=== PATIENT | female | born 1960 | race Caucasian/White ===

== ENCOUNTER 2023-09-15 15:39 | Outpatient (REF) | payer BC, SELFPAY ==
[2023-09-15 16:41] LABS: Anion Gap 15 (12-20); Blood Urea Nitrogen 12 mg/dL (9-16); Calcium 10.2 mg/dL (8.4-10.2); Carbon Dioxide 24 mmol/L (22-29); Chloride 107 mmol/L (96-108); Estimated Glomerular Filt Rate > 60; Glucose Random 102 mg/dL (60-115); Potassium 3.7 mmol/L (3.3-5.1); Sodium 142 mmol/L (135-145)
[2023-09-15 17:03] LABS: T4 Thyroxine 7.2 ug/dL (4.5-12.0); Thyroid Stimulating Hormone 1.34 uIU/mL (0.32-4.0)
[2023-09-15 17:12] LABS: Folate 6.4 ng/mL (> or = 4.0); Vitamin B12 411 pg/mL (200-900)
[2023-09-18 16:42] LABS: Vitamin D 25-OH, D2 <4 ng/mL; Vitamin D 25-OH, D3 40 ng/mL; Vitamin D 25-OH, Total 40 ng/mL (30-100)
== END 2023-09-15 15:40 | disposition home or self-care (01) ==
LOC: HO.LAB 15:39
PROVIDERS: Visit Provider Psychiatry & Neurology Neurology
DX: G31.84 Mild cognitive impairment of uncertain or unknown etiology (principal)
CPT/HCPCS: 36415; 80048; 82306; 82607; 82746; 84436; 84443

== ENCOUNTER 2023-10-22 12:44 | Outpatient (REF) | payer BC, SELFPAY ==
--- NOTE | 2023-10-22 12:48 | EEG_ITS ---
FINDINGS: Waking background activity consists of a moderate voltage posterior 9 hertz alpha frequency with intermixed anterior low-voltage fast frequencies. Several instances of bitemporal theta of 6 to 7 hertz are seen at moderate voltage. Photic stimulation is without activation. Hyperventilation was omitted. IMPRESSION: No definite diagnostic abnormalities are seen in this waking record. MD FALGUNI Goncalves/MATEUS / [id number]
== END 2023-10-22 12:45 | disposition home or self-care (01) ==
LOC: HO.NEURO 12:44
PROVIDERS: PCP Internal Medicine; Visit Provider Psychiatry & Neurology Neurology
DX: G31.84 Mild cognitive impairment of uncertain or unknown etiology (principal)
CPT/HCPCS: 95816

== ENCOUNTER 2024-05-27 09:30 | Day surgery (SDC) | payer BC, SELFPAY ==
--- OUTSIDE RECORDS SUMMARY | 2024-05-12 11:31 | XMS_ITS ---
Author Organization [facility] Address [address] [place] [address] Care Team Providers Care Pest Control Service Sales Agent Name Role Phone CONNER SHORT Primary Care Provider NELLIE MARIETTA Unavailable [phone] MEDICATIONS Medication SIG (Take, Route, Fr equency, Duration) Notes Start Date End Date Status Prolia 60 MG/ML as directed Subcutan eous every 6 months for 180 days Active Encounters Encounter Location Date Provider Diagnosis [facility] [address] [address] 05/10/2024 MARIETTA BALLARD Hyperlipidemia, unspecified E78.5 ASSESSMENTS Encounter Date Diagnosis Assessment Notes Treatment Notes Treatment Clinical Notes Section Notes 05/10/2024 Hyperlipidemia, unspecified (ICD-10 - E78.5) PLAN OF TREATMENT Medication Medication Name Sig Start Date Stop Date Notes Prolia 60 MG/ML as directed Subcutan eous every 6 months for 180 days Next Appt Details Provider Name:MARIETTA BALLARD, 11/08/2024 10:00:00 AM, [address] [address], [place], [address], Progress Notes * GRACE CARROLL LDOB:1959 (64 yo F)Acc No.[id number]:05/10/2024 Patient:??GRACE CARROLL :1960?Age:64 Y?Sex:Fe male Address:[address] [place] [address] * Refills?? Refill Prolia Solution Prefilled Syringe, 60 MG/ML, Subcutaneous, 1 Pen Needle, as directed, every 6 months, 180 days, Refills=1 * true * Date:??
--- OUTSIDE RECORDS SUMMARY | 2024-05-12 11:32 | XMS_ITS ---
Author Organization [facility] Address [address] [place] [address] Care Team Providers Care Waste Collector Name Role Phone CONNER SHORT Primary Care Provider [phone] MARIETTA BALLARD Unavailable [phone] ALLERGIES Allergen (clinical drug ingredient) Drug/Non Drug Allergy documented on EMR Reaction Allergy Type Onset Date Status eggs (uncoded) Unknown Allergy Activ e Vaccine product containing Influenza virus antigen (medicinal product) FLU VACCINE (uncoded) Unknown Allergy Active nuts (uncoded) Unknown Allergy Activ e soybean (uncoded) Unknown Allergy Ac tive meperidine Demerol Unknown Drug Allergy Active morphine Morphine Sulfate Unknown Drug Allergy Active acetaminophen / oxycodone Percocet Unknown Drug Allergy Active REASON FOR VISIT Pt seen in office for CPE, Prolia injection sent to [facility] to be delivered to the office MEDICATIONS Medication SIG (Take, Route, Frequency, Duration) Notes Start Date End Date Status Claritin 10 MG 1 tablet Orally Once a day for 30 day(s) Active Prolia 60 MG/ML as directed Subcutan eous every 6 months for 180 days Active Vitamin D3 125 MCG (5000 UT) as directed Orally Active Ambien 10 MG 1 tablet at bedtime as needed Orally Once a day Active busPIRone HCl 5 MG 2 tablets Orally Twi ce a day Active Emgality 120 MG/ML 120mg Subcutaneous m onthly for 30 days Active Nasacort Allergy 24HR 55 MCG/ACT 1 puff in each nostril Nasally Once a day for 30 day(s) Active ProAir HFA 108 (90 Base) MCG/ACT 2 puffs as needed Inhalation every 6 hrs Active ZyrTEC Allergy 10 MG 1 tablet Orally Onc e a day for 30 day(s) Active Atorvastatin Calcium 40 MG TAKE ONE TABL ET BY MOUTH EVERY DAY for 90 Active EpiPen 2-Javid 0.3 MG/0.3ML Injection Active LORazepam 0.5 MG 1 tablet as needed O rally every 6 hrs Active Montelukast Sodium 10 MG 1 tablet in the evening Orally Once a day for 30 day(s) Active SOCIAL HISTORY Tobacco Use: Social History Observation Description Date Details (start date - stop date) Never Smoker NA - NA Sex Assigned At : Social History Observation Description Sex Assigned At Unknown Tobacco Use/Smoking Question Answer Notes Are you a nonsmoker VITAL SIGNS Heart Rate 94 /min 05/10/2024 Blood pressure systolic 114 mm Hg 05/10/19 25 Blood pressure diastolic 74 mm Hg 025 Weight 150 lbs 05/10/2024 BMI 26.57 kg/m2 05/10/2024 Height 63 in 05/10/2024 Oximetry 99 % 05/10/2024 Encounters Encounter Location Date Provider Diagnosis [place] [address] [address] 05/10/2024 MARIETTA BALLARD Hyperlipidemia, unspecified E78.5 ; Nonspecific chest pain R07.9 ; Generalized anxiety disorder F41.1 ; Memory change R41.3 ; Sleep disturbance G47.9 ; 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 ; Prediabetes R73.03 ; Osteoporosis without current pathological fracture, unspecified osteoporosis type M81.0 ; Pain in left shoulder M25.512 and Esophageal stricture K22.2 ASSESSMENTS Encounter Date Diagnosis Assessment Notes Treatment Notes Treatment Clinical Notes Section Notes 05/10/2024 Hyperlipidemia, unspecified (ICD-10 - E78.5) Acute Concerns/Problem List: 05/10/2024 Seeing neurology planning on getting LP done and a neuropsych evaluation Please update mammography please follow-up with [facility] in regards to stress testing Please start your Prolia as soon as possible given the osteoporotic state Of note, some information is being carried forward from prior records for informational purposes only and is being cited so that efficiency, safety and quality of the patient's care is not compromised This note was prepared using voice recognition software and direct typing Please excuse inadvertent workers compensation adjuster or typing errors, or uncorrected word substitutions Although every attempt has been made by the provider to proofread this document, occasional misspellings and typographical errors may still be present Due to the previous pandemic, and the use of personal protective equipment (PPE) This may decrease voice recognition accuracy Inadvertent workers compensation adjuster errors may occur0 05/10/2024 Nonspecific chest pain (ICD-10 - R07.9) Acute Concerns/Problem List: 05/10/2024 Seeing neurology planning on getting LP done and a neuropsych evaluation Please update mammography please follow-up with [facility] in regards to stress testing Please start your Prolia as soon as possible given the osteoporotic state Of note, some information is being carried forward from prior records for informational purposes only and is being cited so that efficiency, safety and quality of the patient's care is not compromised This note was prepared using voice recognition software and direct typing Please excuse inadvertent workers compensation adjuster or typing errors, or uncorrected word substitutions Although every attempt has been made by the provider to proofread this document, occasional misspellings and typographical errors may still be present Due to the previous pandemic, and the use of personal protective equipment (PPE) This may decrease voice recognition accuracy Inadvertent workers compensation adjuster errors may occur0 05/10/2024 Generalized anxiety disorder (ICD-10 - F41.1) Acute Concerns/Problem List: 05/10/2024 Seeing neurology planning on getting LP done and a neuropsych evaluation Please update mammography please follow-up with [facility] in regards to stress testing Please start your Prolia as soon as possible given the osteoporotic state Of note, some information is being carried forward from prior records for informational purposes only and is being cited so that efficiency, safety and quality of the patient's care is not compromised This note was prepared using voice recognition software and direct typing Please excuse inadvertent workers compensation adjuster or typing errors, or uncorrected word substitutions Although every attempt has been made by the provider to proofread this document, occasional misspellings and typographical errors may still be present Due to the previous pandemic, and the use of personal protective equipment (PPE) This may decrease voice recognition accuracy Inadvertent workers compensation adjuster errors may occur0 05/10/2024 Memory change (ICD-10 - R41.3) Acute Concerns/Problem List: 05/10/2024 Seeing neurology planning on getting LP done and a neuropsych evaluation Please update mammography please follow-up with [facility] in regards to stress testing Please start your Prolia as soon as possible given the osteoporotic state Of note, some information is being carried forward from prior records for informational purposes only and is being cited so that efficiency, safety and quality of the patient's care is not compromised This note was prepared using voice recognition software and direct typing Please excuse inadvertent workers compensation adjuster or typing errors, or uncorrected word substitutions Although every attempt has been made by the provider to proofread this document, occasional misspellings and typographical errors may still be present Due to the previous pandemic, and the use of personal protective equipment (PPE) This may decrease voice recognition accuracy Inadvertent workers compensation adjuster errors may occur0 05/10/2024 Sleep disturbance (ICD-10 - G47.9) Acute Concerns/Problem List: 05/10/2024 Seeing neurology planning on getting LP done and a neuropsych evaluation Please update mammography please follow-up with [facility] in regards to stress testing Please start your Prolia as soon as possible given the osteoporotic state Of note, some information is being carried forward from prior records for informational purposes only and is being cited so that efficiency, safety and quality of the patient's care is not compromised This note was prepared using voice recognition software and direct typing Please excuse inadvertent workers compensation adjuster or typing errors, or uncorrected word substitutions Although every attempt has been made by the provider to proofread this document, occasional misspellings and typographical errors may still be present Due to the previous pandemic, and the use of personal protective equipment (PPE) This may decrease voice recognition accuracy Inadvertent workers compensation adjuster errors may occur0 05/10/2024 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) Acute Concerns/Problem List: 05/10/2024 Seeing neurology planning on getting LP done and a neuropsych evaluation Please update mammography please follow-up with [facility] in regards to stress testing Please start your Prolia as soon as possible given the osteoporotic state Of note, some information is being carried forward from prior records for informational purposes only and is being cited so that efficiency, safety and quality of the patient's care is not compromised This note was prepared using voice recognition software and direct typing Please excuse inadvertent workers compensation adjuster or typing errors, or uncorrected word substitutions Although every attempt has been made by the provider to proofread this document, occasional misspellings and typographical errors may still be present Due to the previous pandemic, and the use of personal protective equipment (PPE) This may decrease voice recognition accuracy Inadvertent workers compensation adjuster errors may occur0 05/10/2024 Prediabetes (ICD-10 - R73.03) Acute Concerns/Problem List: 05/10/2024 Seeing neurology planning on getting LP done and a neuropsych evaluation Please update mammography please follow-up with [facility] in regards to stress testing Please start your Prolia as soon as possible given the osteoporotic state Of note, some information is being carried forward from prior records for informational purposes only and is being cited so that efficiency, safety and quality of the patient's care is not compromised This note was prepared using voice recognition software and direct typing Please excuse inadvertent workers compensation adjuster or typing errors, or uncorrected word substitutions Although every attempt has been made by the provider to proofread this document, occasional misspellings and typographical errors may still be present Due to the previous pandemic, and the use of personal protective equipment (PPE) This may decrease voice recognition accuracy Inadvertent workers compensation adjuster errors may occur0 05/10/2024 Osteoporosis without current pathological fracture, unspecified osteoporosis type (ICD-10 - M81.0) Acute Concerns/Problem List: 05/10/2024 Seeing neurology planning on getting LP done and a neuropsych evaluation Please update mammography please follow-up with [facility] in regards to stress testing Please start your Prolia as soon as possible given the osteoporotic state Of note, some information is being carried forward from prior records for informational purposes only and is being cited so that efficiency, safety and quality of the patient's care is not compromised This note was prepared using voice recognition software and direct typing Please excuse inadvertent workers compensation adjuster or typing errors, or uncorrected word substitutions Although every attempt has been made by the provider to proofread this document, occasional misspellings and typographical errors may still be present Due to the previous pandemic, and the use of personal protective equipment (PPE) This may decrease voice recognition accuracy Inadvertent workers compensation adjuster errors may occur0 05/10/2024 Pain in left shoulder (ICD-10 - M25.512) Acute Concerns/Problem List: 05/10/2024 Seeing neurology planning on getting LP done and a neuropsych evaluation Please update mammography please follow-up with [facility] in regards to stress testing Please start your Prolia as soon as possible given the osteoporotic state Of note, some information is being carried forward from prior records for informational purposes only and is being cited so that efficiency, safety and quality of the patient's care is not compromised This note was prepared using voice recognition software and direct typing Please excuse inadvertent workers compensation adjuster or typing errors, or uncorrected word substitutions Although every attempt has been made by the provider to proofread this document, occasional misspellings and typographical errors may still be present Due to the previous pandemic, and the use of personal protective equipment (PPE) This may decrease voice recognition accuracy Inadvertent workers compensation adjuster errors may occur0 05/10/2024 Esophageal stricture (ICD-10 - K22.2) Acute Concerns/Problem List: 05/10/2024 Seeing neurology planning on getting LP done and a neuropsych evaluation Please update mammography please follow-up with [facility] in regards to stress testing Please start your Prolia as soon as possible given the osteoporotic state Of note, some information is being carried forward from prior records for informational purposes only and is being cited so that efficiency, safety and quality of the patient's care is not compromised This note was prepared using voice recognition software and direct typing Please excuse inadvertent workers compensation adjuster or typing errors, or uncorrected word substitutions Although every attempt has been made by the provider to proofread this document, occasional misspellings and typographical errors may still be present Due to the previous pandemic, and the use of personal protective equipment (PPE) This may decrease voice recognition accuracy Inadvertent workers compensation adjuster errors may occur0 PLAN OF TREATMENT Medication Medication Name Sig Start Date Stop Date Notes Prolia 60 MG/ML as directed Subcutan eous every 6 months for 180 days Emgality 120 MG/ML 120mg Subcutaneous monthly for 30 days Next Appt Details Provider Name:MARIETTA BALLARD, 11/08/2024 10:00:00 AM, [address] [facility], [facility] [address], [place], [address], Progress Notes * GRACE CARROLL LDOB:1959 (64 yo F)Acc No.[id number]:05/10/2024 CPE Patient:??GRACE CARROLL Provider:??MARIETTA BALLARD NP :1960?Age:64 Y?Sex:Fe male Date:05/10/2024 Address:[address], [facility] Pcp:CONNER SHORT Subjective: * Chief Complaints: * ?1. Pt seen in office f or CPE, Prolia injection sent to [facility] to be delivered to the office. * HPI: ?Constitutional:? Patient is here for Annual CPE ?Patient seen and examined. ? Full past medical history, social history, family history, ?allergies and current medications were reviewed and updated. ?Acute Concerns/Problem List: ?05/10/2024 ?She is under tremendous amount of stress and incr workload at work ?She has been neglecting herself ?She has yet to schedule cardiac stress testing, we did refer her in late January ?She was seen for an ER follow-up visit, see previous notes ?Cardiac workup was unremarkable and she was ruled out ?However she has risk factors and her heart score indicates she should have outpatient testing ?Migraine headaches have improved ?Also chronic ongoing memory concerns and family history of dementia ?Patient does see Dr. Galarza. - Pt saw, blood work, EEG, MRI completed. ?Scheduled for LP in the upcoming weeks ?still waiting to see neuropsych for memory/dementia work up. ?She did undergo MRI of the brain without in April 2022 ?There was no evidence of acute infarct or findings ?There are some volume loss and chronic small vessel ischemic changes ?She is osteoporotic and she cannot take alendronate because of swallowing of pills ?We discussed using Prolia however this was sent and she still has not gotten it from pharmacy ?The patient has a history of esophageal strictures and dilation. ?She underwent EGD and colonoscopy with [facility] ?She is requesting a new GI provider -still looking for new GI provider. . ?Other History that includes allergic rhinitis, chronic obstructive asthma, food allergies, drug allergies ?Urticaria and mast cell activation disorder ?Being treated by allergy and immunology ?History of nephrolithiasis ?She is followed by urology. ?Comprehensive labs November 2023 ?UA unremarkable ?Hemoglobin A1c of 5.3 ?Renal function electrolytes and LFTs are stable ?CBC is stable ?Total cholesterol 178, triglycerides 116, HDL 46, LDL 109 ?Vitamin D 38 ?TSH 1.77 ?Health maintenance ?Colonoscopy screening April 2020 ?Polyps. [facility] ?5 year surveillance - aware she is due in 2024. ?Mammography/Pap: 03/2022. OVERDUEr ?DXA: 04/2022: Osteoporotic. Due for updated Dexa ?Flu: allergic ?COVID MRNA x 2 ?Shingrix: Desires Shingrix vaccine today. * ROS:?All Other Systems:?Review of Systems (ROS)??All others negative except those mentioned in HPI.? * Medical History:??Asthma, Al lergic rhinitis, Hypercholesterolemia, Hyperlipidemia. * Surgical History:??cholecyst ectomy , ovarian cyst resection , polypectomy , colonoscopy due 2019 . * Hospitalization/Major Diagno stic Procedure:??Denies Past Hospitalization. * Family History:??Father: dec eased, diagnosed with Other malignant neoplasm of unspecified site.??Mother: alive, diagnosed with Other malignant neoplasm of unspecified site.??2 brother(s) - healthy. 1 son(s) , 1 daughter(s) - healthy. .?? father larynx cx. * Social History:?Tobacco Use:??Tobacco Use/Smoking??Are you a??nonsmoker.?? * Medications:??Taking Prolia 60 MG/ML Solution Prefilled Syringe as directed Subcutaneous every 6 months , Taking Vitamin D3 125 MCG (5000 UT) Tablet Chewable as directed Orally , Taking Ambien 10 MG Tablet 1 tablet at bedtime as needed Orally Once a day , Taking busPIRone HCl 5 MG Tablet 2 tablets Orally Twice a day , Taking Claritin 10 MG Tablet 1 tablet Orally Once a day , Taking EpiPen 2-Javid 0.3 MG/0.3ML Solution Auto-injector Injection , Taking LORazepam 0.5 MG Tablet 1 tablet as needed Orally every 6 hrs , Taking Montelukast Sodium 10 MG Tablet 1 tablet in the evening Orally Once a day , Taking Nasacort Allergy 24HR 55 MCG/ACT Aerosol 1 puff in each nostril Nasally Once a day , Taking ProAir HFA 108 (90 Base) MCG/ACT Aerosol Solution 2 puffs as needed Inhalation every 6 hrs , Taking ZyrTEC Allergy 10 MG Tablet 1 tablet Orally Once a day , Taking Atorvastatin Calcium 40 MG Tablet TAKE ONE TABLET BY MOUTH EVERY DAY , Not-Taking Emgality 120 MG/ML Solution Auto-injector 120mg Subcutaneous monthly , Medication List reviewed and reconciled with the patient * Allergies:??Morphine Sulfate , Demerol, Percocet, eggs, soybean, nuts, FLU VACCINE. Objective: * Vitals:??HR:94/min, BP:114/7 4mm Hg, Wt:150lbs, BMI:26.57Index, Ht: 63 in, Oxygen sat %:99%. * Examination: ?General Examination: ?GENERAL APPEARANCE:??in no acute distress, well developed, well nourished.??HEAD:??normocephalic, atraumatic.??EYES:??pupils equal, round, reactive to light and accommodation.??EARS:??normal.??ORAL CAVITY:??mucosa moist.??THROAT:??clear.??NECK/THYROID:??neck supple, full range of motion, no cervical lymphadenopathy.??SKIN:??no suspicious lesions, warm and dry.??HEART:??no murmurs, regular rate and rhythm, S1, S2 normal.??LUNGS:??clear to auscultation bilaterally.??ABDOMEN:??normal, bowel sounds present, soft, nontender, nondistended.??EXTREMITIES:??no clubbing, cyanosis, or edema.??NEUROLOGIC:??nonfocal, motor strength normal upper and lower extremities, sensory exam intact.? Assessment: * Assessment: 1.??Nonspecific chest pain - R07.9 (Primary)??2.??Hyperlipidemia, unspecified - E78.5??3.??Generalized anxiety disorder - F41.1??4.??Memory change - R41.3??5.??Sleep disturbance - G47.9??6.??Mast cell activation syndrome - D89.40??7.??Prediabetes - R73.03??8.??Osteoporosis without current pathological fracture, unspecified osteoporosis type - M81.0??9.??Pain in left shoulder - M25.512??10.??Esophageal stricture - K22.2?? Acute Concerns/Problem List: 05/10/2024 Seeing neurology planning on getting LP done and a neuropsych evaluation Please update mammography please follow-up with [facility] in regards to stress testing Please start your Prolia as soon as possible given the osteoporotic state Of note, some information is being carried forward from prior records for informational purposes only and is being cited so that efficiency, safety and quality of the patient's care is not compromised This note was prepared using voice recognition software and direct typing Please excuse inadvertent workers compensation adjuster or typing errors, or uncorrected word substitutions Although every attempt has been made by the provider to proofread this document, occasional misspellings and typographical errors may still be present Due to the previous pandemic, and the use of personal protective equipment (PPE) This may decrease voice recognition accuracy Inadvertent workers compensation adjuster errors may occur0. Plan: * Treatment: * Images: Billing Information: * Visit Code:?? 49952 Preventive Care Est Pt. Age 65 and over. * Procedure Codes:?? Care Plan Details* * Sign off status: Completed true * Provider:??MARIETTA BALLARD NP Date:??11/2024 History and Physical Notes * HPI (History of Present Illness) Category Sub-Category Detail Notes Category Not es Constitutional Patient is here for Annual CPE Patient seen and examined. Full past medical history, social history, family history, allergies and current medications were reviewed and updated. Acute Concerns/Problem List: 05/10/2024 She is under tremendous amount of stress and incr workload at work She has been neglecting herself She has yet to schedule cardiac stress testing, we did refer her in late January She was seen for an ER follow-up visit, see previous notes Cardiac workup was unremarkable and she was ruled out However she has risk factors and her heart score indicates she should have outpatient testing Migraine headaches have improved Also chronic ongoing memory concerns and family history of dementia Patient does see Dr. Galarza. - Pt saw, blood work, EEG, MRI completed. Scheduled for LP in the upcoming weeks still waiting to see neuropsych for memory/dementia work up. She did undergo MRI of the brain without in April 2022 There was no evidence of acute infarct or findings There are some volume loss and chronic small vessel ischemic changes She is osteoporotic and she cannot take alendronate because of swallowing of pills We discussed using Prolia however this was sent and she still has not gotten it from pharmacy The patient has a history of esophageal strictures and dilation. She underwent EGD and colonoscopy with [facility] She is requesting a new GI provider -still looking for new GI provider. . Other History that includes allergic rhinitis, chronic obstructive asthma, food allergies, drug allergies Urticaria and mast cell activation disorder Being treated by allergy and immunology History of nephrolithiasis She is followed by urology. Comprehensive labs November 2023 UA unremarkable Hemoglobin A1c of 5.3 Renal function electrolytes and LFTs are stable CBC is stable Total cholesterol 178, triglycerides 116, HDL 46, LDL 109 Vitamin D 38 TSH 1.77 Health maintenance Colonoscopy screening April 2020 Polyps. [facility] 5 year surveillance - aware she is due in 2024. Mammography/Pap: 03/2022. OVERDUEr DXA: 04/2022: Osteoporotic. Due for updated Dexa Flu: allergic COVID MRNA x 2 Shingrix: Desires Shingrix vaccine today. Examination Category Sub-Category Detail Notes Category Not es General Examination GENERAL APPEARANCE: in no ac lolita distress, well developed, well nourished HEAD: normocephalic, atrau matic EYES: pupils equal, round, reactive to light and accommodation EARS: normal THROAT: clear NECK/THYROID: neck supple, full ra nge of motion, no cervical lymphadenopathy HEART: no murmurs, regular rate and rhythm, S1, S2 normal LUNGS: clear to auscultatio n bilaterally ABDOMEN: normal, bowel sounds present, soft, nontender, nondistended NEUROLOGIC: nonfocal, motor stre ngth normal upper and lower extremities, sensory exam intact SKIN: no suspicious lesion s, warm and dry EXTREMITIES: no clubbing, cyanosi s, or edema ORAL CAVITY: mucosa moist
--- OUTSIDE RECORDS SUMMARY | 2024-05-12 11:32 | XMS_ITS ---
Author Organization [facility] Address [address] [place] [address] Care Team Providers Care Salt Manager Name Role Phone [facility] Primary Care Provider [phone] REASON FOR VISIT insurance referral Encounters Encounter Location Date Provider Diagnosis [address] [place] [address] 04/07/2024 [facility] PLAN OF TREATMENT Next Appt Details Provider Name:MARIETTA TATUMTracey, 11/08/2024 10:00:00 AM, [address], [address], [place], [address], Progress Notes * GRACE CARROLL LDOB:1959 (64 yo F)Acc No.[id number]:04/07/2024 Patient:??GRACE CARROLL :1960?Age:64 Y?Sex:Fe male Address:[address], [place] [address] * true * Date:??
--- OUTSIDE RECORDS SUMMARY | 2024-05-12 11:32 | XMS_ITS | Patient Health Record ---
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 Name Role Phone CONNER SHORT Primary Care Provider MARIETTA BALLARD Unavailable [phone] ALLERGIES Allergen (clinical drug ingredient) Drug/Non Drug [...] / oxycodone Percocet Unknown Drug Allergy Active RESULTS Component Value Reference Range Notes URINALYSIS Reviewed date:11/12/2023 12:04:37 PM Interpretation: Performing Lab: Notes/Report: Note Original Ordering Provider: MARIETTA BALLARD NP kidthing, a member of [address] [address] Cloth Bleaching Range Tender - Yuly Brice MD GLUCOSE, (UA) NEGATIVE NEGATIVE mg/dL BILIRUBIN, URINE NEGATIVE NEGATIVE KETONE, URINE NEGATIVE NEGATIVE mg/dL SPECIFIC GRAVITY, URINE 1.022 1.003-1.030 BLOOD, URINE SMALL NEGATIVE PH, URINE 5.5 5.0-8.0 PROTEIN, URINE NEGATIVE <= TRACE mg/dl UROBILINOGEN, URINE 0.2 0.2-1.0 E.U./dL NITRITE, URINE NEGATIVE NEGATIVE LEUKOCYTE ESTERASE, URINE SMALL NEGATIVE Note Original Ordering Provider: MARIETTA BALLARD NP kidthing, a member of [address] [address] Cl[employer] Bleaching Range Tender - Yuly Brice MD GLYCOHEMOGLOBIN PROFILE Reviewed date:11/12/2023 12:45:15 PM Interpretation: Performing Lab: Notes/Report: GLYCATED HEMOGLOBIN A1C 5.3 <6.5 % ESTIMATED AVERAGE GLUCOSE 105 COMPREHENSIVE METABOLIC PANE L Reviewed date:11/12/2023 01:25:03 PM Interpretation: Performing Lab: Notes/Report: Note Original Orderi ng Provider: MARIETTA BALLARD PARKING OFFICER GLUCOSE 103 70-100 mg/dL Reference range applicable to fasting specimens only BUN 14 5-25 mg/dL CREAT 0.80 0.5-1.1 mg/dL GLOMERULAR FILTRATION RATE 82 >60 This eGFR result was calculated using the CKD-EPI 2020 Creatinine Equation SODIUM 144 135-145 mEq/L POTASSIUM 4.2 3.5-5.5 mmol/L CHLORIDE 110 96-110 mmol/L CO2 27 21-32 mmol/L ANION GAP 7 3-11 CALCIUM 10.4 8.5-10.5 mg/dL TOTAL PROTEIN 7.2 6.0-8.0 G/dL ALBUMIN 4.2 3.2-5.0 G/dL BILI,TOTAL 1.0 0.0-1.4 mg/dL SGOT 17 10-42 U/L SGPT 27 10-60 U/L ALK PHOS 79 42-121 U/L CBC WITH AUTO DIFF Reviewed date:11/12/2023 11:51:06 AM Interpretation: Performing Lab: Notes/Report: WBC 5.4 4.8-10.8 x10-3/uL RBC 4.6 3.8-4.8 x10-6/uL HEMOGLOBIN 14.1 11.5-16.0 g/dL HEMATOCRIT 42.5 35-47 % MCV 92.2 79-98 fL MCH 30.6 27-32 pg MCHC 33.2 32-37 g/dL RDW 12.4 11-15 % PLT COUNT 246 130-400 x10-3/uL MEAN PLATELET VOLUME 10.8 7-11 fL NRBC % AUTO 0.0 <1 % NEUT % 67.5 LYMPH % 23.7 MONO % 7.3 EOS % 0.7 BASO % 0.6 IMMATURE GRANULOCYTES % 0.2 NRBC # AUTO 0.00 <0.1 x10-3/uL ABSOLUTE NEUT 3.61 1.5-7.0 x10-3/uL LYMPH # 1.27 1-5.0 x10-3/uL MONO # 0.39 0.2-1.0 x10-3/uL EOS # 0.04 0-0.5 x10-3/uL BASO # 0.03 0-0.2 x10-3/uL IMMATURE GRANULOCYTES # 0.01 0-0.03 x10-3/uL LIPID PROFILE Reviewed date:11/12/2023 01:25:03 PM Interpretation: Performing Lab: Notes/Report: CHOLESTEROL 178 0-200 mg/dL TRIGLYCERIDES 116 0-150 mg/dL VITAMIN D, 25-HYDROXY Reviewed date:11/12/2023 01:25:03 PM Interpretation: Performing Lab: Notes/Report: VITAMIN D, 25-HYDROXY 38 30-80 ng/mL TSH Reviewed date:11/12/2023 01:25:03 PM Interpretation: Performing Lab: Notes/Report: TSH 1.77 0.40-4.00 uIU/ml REASON FOR REFERRAL Reason consult Diagnosis 1 Esophageal stricture (K22.2) Referral Organization [facility] 119 Referring Provider First Name MARIETTA Referring Provider Last Name NELLIE Referring Provider Speciality Internal M edicine Referred Provider Karen AWAN Referred Provider Specialty Gastroentero logy General Notes BO HENDRICKSON 11/11 11:19:09 AM > faxed to Dr Rader for appt - gave pt phone # to call for appt Referral Priority Routine Reason [facility]VC stress test Diagnosis 1 Other chest pain (R0 7.89) Referral Organization [facility] Referring Provider First Name CONNER Referring Provider Last Name HAN Referring Provider Speciality Internal edicine Referred Provider Specialty Cardiology General Notes Pt needing to be ref erred to [facility] for stress test , faxed over last ekg that was done in 2019 they stated in order for her to get stress test done she will need updated EKG. Clinical Notes Sadaf Hernandez 01/07 01:44:02 PM > Referral Priority Routine MEDICATIONS Medication SIG (Take, Route, Frequency, Duration) Notes Start Date End Date Status Nasacort Allergy 24HR 55 MCG/ACT 1 puff in each nostril Nasally Once a day for 30 day(s) Active ProAir HFA 108 (90 Base) MCG/ACT 2 puffs as needed Inhalation every 6 hrs Active ZyrTEC Allergy 10 MG 1 tablet Orally Onc e a day for 30 day(s) Active Atorvastatin Calcium 40 MG TAKE ONE TABL ET BY MOUTH EVERY DAY for 90 Active Vitamin D3 125 MCG (5000 UT) as directed Orally Active Ambien 10 MG 1 tablet at bedtime as needed Orally Once a day Active busPIRone HCl 5 MG 2 tablets Orally Twi ce a day Active Claritin 10 MG 1 tablet Orally Once a day for 30 day(s) Active EpiPen 2-Javid 0.3 MG/0.3ML Injection Active LORazepam 0.5 MG 1 tablet as needed O rally every 6 hrs Active Montelukast Sodium 10 MG 1 tablet in the evening Orally Once a day for 30 day(s) Active Prolia 60 MG/ML as directed Subcutan eous every 6 months for 180 days Active Emgality 120 MG/ML 120mg Subcutaneous m onthly for 30 days Active IMMUNIZATIONS Vaccine Route Administration Date Status Comme nts Moderna Covid-19 Vaccine Unknown 07/11/2020 Administere d Moderna Covid-19 Vaccine Unknown 08/13/2020 Administere d Moderna Covid-19 Vaccine Unknown 04/16/2021 Administere d SOCIAL HISTORY Tobacco Use: Social History Observation Description Date Details (start date - stop date) Never Smoker NA - NA Sex Assigned At : Social History Observation Description Sex Assigned At Unknown Tobacco Use/Smoking Question Answer Notes Are you a nonsmoker PROBLEMS Problem Type ICD Code Onset Dates Problem Status W/U Status Risk SNOMED Code Notes Problem Vitamin D deficiency, unspecified (E55.9) Active confirmed 94614512 Problem Hyperlipidemia, unspecified (E78.5) Active confirmed Hyperlipidemia (64868562) Problem Generalized anxiety disorder (F41.1) Active confirmed Generalized anxiety disorder (02050615) Problem Other migraine, not intractable, without status migrainosus (G43.809) Active confirmed Migraine withou t aura, not refractory (915004585) Problem Other chronic pain (G89.29) Active confirmed 54792926 Problem Allergic rhinitis, unspecified (J30.9) Active confirmed Allergic rhinit is (88194949) Problem Age-related osteoporosis without current pathological fracture (M81.0) Active confirmed Age-related osteoporosis (459250348) Problem Calculus of kidney (N20.0) Active confirmed Calculus of kidney (23100062) Problem Other chest pain (R07.89) Active confirmed 06495990 Problem Encounter for general adult medical examination without abnormal findings (Z00.00) Active confirmed 083566425 Problem Encounter for screening for lipoid disorders (Z13.220) Active confirmed 008778909 Problem Encounter for screening for other suspected endocrine disorder (Z13.29) Active confirmed 432115644 Problem Encounter for screening for osteoporosis (Z13.820) Active confirmed 133914710 Problem Right knee pain, unspecified chronicity (M25.561) Active confirmed Problem Depression, unspecified depression type (F32.9) Active confirmed 08665421 Problem Insomnia, unspecified type (G47.00) Active confirmed 590275246 Problem Esophageal stricture (K22.2) Active confirmed 26447921 Problem Osteoporosis without current pathological fracture, unspecified osteoporosis type (M81.0) Active confirmed 91745444 Problem Memory change (R41.3) Active confirmed Amnesia (35666355) Problem Sleep disturbance (G47.9) Active confirmed Sleep disturban ce (70345644) Problem 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) Active confirmed Mast cell activation syndrome ([id number] 0) VITAL SIGNS Heart Rate 94 /min 05/10/2024 Oximetry 99 % 05/10/2024 Blood pressure diastolic 74 mm Hg 05/10/2024 Height 63 in 05/10/2024 Blood pressure systolic 114 mm Hg 05/10/2024 Weight 150 lbs 05/10/2024 BMI 26.57 kg/m2 05/10/2024 Encounters Encounter Location Date Provider Diagnosis [place] [address] 07/23/2023 MARIETTA BORHOT Hyperlipidemia, unspecified E78.5 ; Generalized anxiety disorder F41.1 ; Memory change R41.3 ; Sleep disturbance G47.9 ; 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 ; Vitamin D deficiency, unspecified E55.9 ; Prediabetes R73.03 ; Osteoporosis without current pathological fracture, unspecified osteoporosis type M81.0 ; Pain in left shoulder M25.512 and Other chronic pain G89.29 [place] [address] 11/12/2023 MARIETTA BORHOT Hyperlipidemia, unspecified E78.5 ; Generalized anxiety disorder F41.1 ; Memory change R41.3 ; Sleep disturbance G47.9 ; 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 ; Prediabetes R73.03 ; Osteoporosis without current pathological fracture, unspecified osteoporosis type M81.0 ; Pain in left shoulder M25.512 ; Nonspecific chest pain R07.9 and Esophageal stricture K22.[address] [place] [address] 05/10/2024 MARIETTACONG WINNT Hyperlipidemia, unspecified E78.5 ; Nonspecific chest pain R07.9 ; Generalized anxiety disorder F41.1 ; Memory change R41.3 ; Sleep disturbance G47.9 ; 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 ; Prediabetes R73.03 ; Osteoporosis without current pathological fracture, unspecified osteoporosis type M81.0 ; Pain in left shoulder M25.512 and Esophageal stricture K22.[address] [place] [address] 07/03/2023 [facility] [address] [place] [address] 10/07/2023 [facility] [address] [place] [address] 11/12/[address] [facility] [address] [place] [address] 01/08/[address] [facility] [place] [phone] 01/08/2024 [facility] [address] [place] [address] 04/07/[address] [facility] [address] [place] [phone] 05/10/2024 MARIETTA BALLARD Hyperlipidemia, unspecified E78.5 ASSESSMENTS Encounter Date Diagnosis Assessment Notes Treatment Notes Treatment Clinical Notes Section Notes 11/12/2023 Hyperlipidemia, unspecified (ICD-10 - E78.5) Acute Concerns/Problem List: 11/12/2023 _update labs please updated DXA send prolia to [facility] f/u with neurology Rerefer to [facility] Cardiac stress testing We discussed the role of cholesterol and atherosclerosis. Cholesterols broken down into some particles. Cholesterol very important for her body and has an important role in the synthesis of various hormones and neurotransmitters. However, today's cholesterol can have potential complications. Small density LDL particles that are oxidized or particularly dangerous. HDL cholesterol can have a protective effect. Elevated triglycerides levels are also dangerous. An elevated triglyceride and HDL ratio could be a sign of insulin resistance. Statins, fibrates, niacin, fish oil, DHEA, can be beneficial in treatment of dyslipidemia. Lifestyle modification with exercise and appropriate nutrition can decrease the risk of atherosclerosis due to dyslipidemia. Of note, some information is being carried forward from prior records for informational purposes only and is being cited so that efficiency, safety and quality of the patient's care is not compromised This note was prepared using voice recognition software and direct typing Please excuse inadvertent equity structurer or typing errors, or uncorrected word substitutions Although every attempt has been made by the provider to proofread this document, occasional misspellings and typographical errors may still be present Due to the previous pandemic, and the use of personal protective equipment (PPE) This may decrease voice recognition accuracy Inadvertent equity structurer errors may occur0 05/10/2024 Hyperlipidemia, unspecified (ICD-10 - E78.5) Acute Concerns/Problem List: 05/10/2024 Seeing neurology planning on getting LP done and a neuropsych evaluation Please update mammography please follow-up with [facility] in regards to stress testing Please [...] software and direct typing Please excuse inadvertent equity structurer or typing errors, or uncorrected word substitutions Although every attempt has been made by the provider to proofread this document, occasional misspellings and typographical errors may still be present Due to the previous pandemic, and the use of personal protective equipment (PPE) This may decrease voice recognition accuracy Inadvertent equity structurer errors may occur0 05/10/2024 Nonspecific chest pain (ICD-10 - R07.9) Acute Concerns/Problem List: 05/10/2024 Seeing neurology planning on getting LP done and a neuropsych evaluation Please update mammography please follow-up with [facility] in regards to stress testing Please [...] software and direct typing Please excuse inadvertent equity structurer or typing errors, or uncorrected word substitutions Although every attempt has been made by the provider to proofread this document, occasional misspellings and typographical errors may still be present Due to the previous pandemic, and the use of personal protective equipment (PPE) This may decrease voice recognition accuracy Inadvertent equity structurer errors may occur0 05/10/2024 Hyperlipidemia, unspecified (ICD-10 - E78.5) 07/23/2023 Hyperlipidemia, unspecified (ICD-10 - E78.5) Patient seen and examined for CCM. Acute Concerns/Problem List: 07/23/2023 Will rerefer to neurology per request [facility] encouraged to speak to insurance company and to neurologist regarding treatment options She seems to respond to CGRP's Cardiac stress testing Lets update labs and CPE in the upcoming months We discussed the role of cholesterol and atherosclerosis. Cholesterols broken down into some particles. Cholesterol very important for her body and has an important role in the synthesis of various hormones and neurotransmitters. However, today's cholesterol can have potential complications. Small density LDL particles that are oxidized or particularly dangerous. HDL cholesterol can have a protective effect. Elevated triglycerides levels are also dangerous. An elevated triglyceride and HDL ratio could be a sign of insulin resistance. Statins, fibrates, niacin, fish oil, DHEA, can be beneficial in treatment of dyslipidemia. Lifestyle modification with exercise and appropriate nutrition can decrease the risk of atherosclerosis due to dyslipidemia. Of note, some information is being carried forward from prior records for informational purposes only and is being cited so that efficiency, safety and quality of the patient's care is not compromised This note was prepared using voice recognition software and direct typing Please excuse inadvertent equity structurer or typing errors, or uncorrected word substitutions Although every attempt has been made by the provider to proofread this document, occasional misspellings and typographical errors may still be present Due to the previous pandemic, and the use of personal protective equipment (PPE) This may decrease voice recognition accuracy Inadvertent equity structurer errors may occur0 07/23/2023 Generalized anxiety disorder (ICD-10 - F41.1) Patient seen and examined for CCM. Acute Concerns/Problem List: 07/23/2023 Will rerefer to neurology per request Rerefer to [facility] Emgality samples provided encouraged to speak to insurance company and to neurologist regarding treatment options She seems to respond to CGRP's Cardiac stress testing Lets update labs and CPE in the upcoming months We discussed the role of cholesterol and atherosclerosis. Cholesterols broken down into some particles. Cholesterol very important for her body and has an important role in the synthesis of various hormones and neurotransmitters. However, today's cholesterol can have potential complications. Small density LDL particles that are oxidized or particularly dangerous. HDL cholesterol can have a protective effect. Elevated triglycerides levels are also dangerous. An elevated triglyceride and HDL ratio could be a sign of insulin resistance. Statins, fibrates, niacin, fish oil, DHEA, can be beneficial in treatment of dyslipidemia. Lifestyle modification with exercise and appropriate nutrition can decrease the risk of atherosclerosis due to dyslipidemia. Of note, some information is being carried forward from prior records for informational purposes only and is being cited so that efficiency, safety and quality of the patient's care is not compromised This note was prepared using voice recognition software and direct typing Please excuse inadvertent equity structurer or typing errors, or uncorrected word substitutions Although every attempt has been made by the provider to proofread this document, occasional misspellings and typographical errors may still be present Due to the previous pandemic, and the use of personal protective equipment (PPE) This may decrease voice recognition accuracy Inadvertent equity structurer errors may occur0 05/10/2024 Generalized anxiety disorder (ICD-10 - F41.1) Acute Concerns/Problem List: 05/10/2024 Seeing neurology planning on getting LP done and a neuropsych evaluation Please update mammography please follow-up with [facility] in regards to stress testing Please [...] software and direct typing Please excuse inadvertent equity structurer or typing errors, or uncorrected word substitutions Although every attempt has been made by the provider to proofread this document, occasional misspellings and typographical errors may still be present Due to the previous pandemic, and the use of personal protective equipment (PPE) This may decrease voice recognition accuracy Inadvertent equity structurer errors may occur0 11/12/2023 Generalized anxiety disorder (ICD-10 - F41.1) Acute Concerns/Problem List: 11/12/2023 _update labs please updated DXA send prolrubi to [facility]/ with neurology Rerefer to [facility] Cardiac stress testing We discussed the role of cholesterol and atherosclerosis. Cholesterols broken down into some particles. Cholesterol very important for her body and has an important role in the synthesis of various hormones and neurotransmitters. However, today's cholesterol can have potential complications. Small density LDL particles that are oxidized or particularly dangerous. HDL cholesterol can have a protective effect. Elevated triglycerides levels are also dangerous. An elevated triglyceride and HDL ratio could be a sign of insulin resistance. Statins, fibrates, niacin, fish oil, DHEA, can be beneficial in treatment of dyslipidemia. Lifestyle modification with exercise and appropriate nutrition can decrease the risk of atherosclerosis due to dyslipidemia. Of note, some information is being carried forward from prior records for informational purposes only and is being cited so that efficiency, safety and quality of the patient's care is not compromised This note was prepared using voice recognition software and direct typing Please excuse inadvertent equity structurer or typing errors, or uncorrected word substitutions Although every attempt has been made by the provider to proofread this document, occasional misspellings and typographical errors may still be present Due to the previous pandemic, and the use of personal protective equipment (PPE) This may decrease voice recognition accuracy Inadvertent equity structurer errors may occur0 11/12/2023 Memory change (ICD-10 - R41.3) Acute Concerns/Problem List: 11/12/2023 _update labs please updated DXA send antonia to [facility]/ with neurology Rerefer to [facility] Cardiac stress testing We discussed the role of cholesterol and atherosclerosis. Cholesterols broken down into some particles. Cholesterol very important for her body and has an important role in the synthesis of various hormones and neurotransmitters. However, today's cholesterol can have potential complications. Small density LDL particles that are oxidized or particularly dangerous. HDL cholesterol can have a protective effect. Elevated triglycerides levels are also dangerous. An elevated triglyceride and HDL ratio could be a sign of insulin resistance. Statins, fibrates, niacin, fish oil, DHEA, can be beneficial in treatment of dyslipidemia. Lifestyle modification with exercise and appropriate nutrition can decrease the risk of atherosclerosis due to dyslipidemia. Of note, some information is being carried forward from prior records for informational purposes only and is being cited so that efficiency, safety and quality of the patient's care is not compromised This note was prepared using voice recognition software and direct typing Please excuse inadvertent equity structurer or typing errors, or uncorrected word substitutions Although every attempt has been made by the provider to proofread this document, occasional misspellings and typographical errors may still be present Due to the previous pandemic, and the use of personal protective equipment (PPE) This may decrease voice recognition accuracy Inadvertent equity structurer errors may occur0 05/10/2024 Memory change (ICD-10 - R41.3) Acute Concerns/Problem List: 05/10/2024 Seeing neurology planning on getting LP done and a neuropsych evaluation Please update mammography please follow-up with [facility] in regards to stress testing Please [...] software and direct typing Please excuse inadvertent equity structurer or typing errors, or uncorrected word substitutions Although every attempt has been made by the provider to proofread this document, occasional misspellings and typographical errors may still be present Due to the previous pandemic, and the use of personal protective equipment (PPE) This may decrease voice recognition accuracy Inadvertent equity structurer errors may occur0 07/23/2023 Memory change (ICD-10 - R41.3) Patient seen and examined for CCM. Acute Concerns/Problem List: 07/23/2023 Will rerefer to neurology per request [facility] provided encouraged to speak to insurance company and to neurologist regarding treatment options She seems to respond to CGRP's Cardiac stress testing Lets update labs and CPE in the upcoming months We discussed the role of cholesterol and atherosclerosis. Cholesterols broken down into some particles. Cholesterol very important for her body and has an important role in the synthesis of various hormones and neurotransmitters. However, today's cholesterol can have potential complications. Small density LDL particles that are oxidized or particularly dangerous. HDL cholesterol can have a protective effect. Elevated triglycerides levels are also dangerous. An elevated triglyceride and HDL ratio could be a sign of insulin resistance. Statins, fibrates, niacin, fish oil, DHEA, can be beneficial in treatment of dyslipidemia. Lifestyle modification with exercise and appropriate nutrition can decrease the risk of atherosclerosis due to dyslipidemia. Of note, some information is being carried forward from prior records for informational purposes only and is being cited so that efficiency, safety and quality of the patient's care is not compromised This note was prepared using voice recognition software and direct typing Please excuse inadvertent equity structurer or typing errors, or uncorrected word substitutions Although every attempt has been made by the provider to proofread this document, occasional misspellings and typographical errors may still be present Due to the previous pandemic, and the use of personal protective equipment (PPE) This may decrease voice recognition accuracy Inadvertent equity structurer errors may occur0 07/23/2023 Sleep disturbance (ICD-10 - G47.9) Patient seen and examined for CCM. Acute Concerns/Problem List: 07/23/2023 Will rerefer to neurology per request Rerefer to [facility] Emgality samples provided encouraged to speak to insurance company and to neurologist regarding treatment options She seems to respond to CGRP's Cardiac stress testing Lets update labs and CPE in the upcoming months We discussed the role of cholesterol and atherosclerosis. Cholesterols broken down into some particles. Cholesterol very important for her body and has an important role in the synthesis of various hormones and neurotransmitters. However, today's cholesterol can have potential complications. Small density LDL particles that are oxidized or particularly dangerous. HDL cholesterol can have a protective effect. Elevated triglycerides levels are also dangerous. An elevated triglyceride and HDL ratio could be a sign of insulin resistance. Statins, fibrates, niacin, fish oil, DHEA, can be beneficial in treatment of dyslipidemia. Lifestyle modification with exercise and appropriate nutrition can decrease the risk of atherosclerosis due to dyslipidemia. Of note, some information is being carried forward from prior records for informational purposes only and is being cited so that efficiency, safety and quality of the patient's care is not compromised This note was prepared using voice recognition software and direct typing Please excuse inadvertent equity structurer or typing errors, or uncorrected word substitutions Although every attempt has been made by the provider to proofread this document, occasional misspellings and typographical errors may still be present Due to the previous pandemic, and the use of personal protective equipment (PPE) This may decrease voice recognition accuracy Inadvertent equity structurer errors may occur0 11/12/2023 Sleep disturbance (ICD-10 - G47.9) Acute Concerns/Problem List: 11/12/2023 _update labs please updated DXA send prolia to [facility] f/u with neurology Rerefer to [facility] Cardiac stress testing We discussed the role of cholesterol and atherosclerosis. Cholesterols broken down into some particles. Cholesterol very important for her body and has an important role in the synthesis of various hormones and neurotransmitters. However, today's cholesterol can have potential complications. Small density LDL particles that are oxidized or particularly dangerous. HDL cholesterol can have a protective effect. Elevated triglycerides levels are also dangerous. An elevated triglyceride and HDL ratio could be a sign of insulin resistance. Statins, fibrates, niacin, fish oil, DHEA, can be beneficial in treatment of dyslipidemia. Lifestyle modification with exercise and appropriate nutrition can decrease the risk of atherosclerosis due to dyslipidemia. Of note, some information is being carried forward from prior records for informational purposes only and is being cited so that efficiency, safety and quality of the patient's care is not compromised This note was prepared using voice recognition software and direct typing Please excuse inadvertent equity structurer or typing errors, or uncorrected word substitutions Although every attempt has been made by the provider to proofread this document, occasional misspellings and typographical errors may still be present Due to the previous pandemic, and the use of personal protective equipment (PPE) This may decrease voice recognition accuracy Inadvertent equity structurer errors may occur0 05/10/2024 Sleep disturbance (ICD-10 - G47.9) Acute Concerns/Problem List: 05/10/2024 Seeing neurology planning on getting LP done and a neuropsych evaluation Please update mammography please follow-up with [facility] in regards to stress testing Please [...] software and direct typing Please excuse inadvertent equity structurer or typing errors, or uncorrected word substitutions Although every attempt has been made by the provider to proofread this document, occasional misspellings and typographical errors may still be present Due to the previous pandemic, and the use of personal protective equipment (PPE) This may decrease voice recognition accuracy Inadvertent equity structurer errors may occur0 05/10/2024 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) Acute Concerns/Problem List: 05/10/2024 Seeing neurology planning on getting LP done and a neuropsych evaluation Please update mammography please follow-up with [facility] in regards to stress testing Please [...] software and direct typing Please excuse inadvertent equity structurer or typing errors, or uncorrected word substitutions Although every attempt has been made by the provider to proofread this document, occasional misspellings and typographical errors may still be present Due to the previous pandemic, and the use of personal protective equipment (PPE) This may decrease voice recognition accuracy Inadvertent equity structurer errors may occur0 11/12/2023 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 Cholesterols broken down into some particles. Cholesterol very important for her body and has an important role in the synthesis of various hormones and neurotransmitters. However, today's cholesterol can have potential complications. Small density LDL particles that are oxidized or particularly dangerous. HDL cholesterol can have a protective effect. Elevated triglycerides levels are also dangerous. An elevated triglyceride and HDL ratio could be a sign of insulin resistance. Statins, fibrates, niacin, fish oil, DHEA, can be beneficial in treatment of dyslipidemia. Lifestyle modification with exercise and appropriate nutrition can decrease the risk of atherosclerosis due to dyslipidemia. Of note, some information is being carried forward from prior records for informational purposes only and is being cited so that efficiency, safety and quality of the patient's care is not compromised This note was prepared using voice recognition software and direct typing Please excuse inadvertent equity structurer or typing errors, or uncorrected word substitutions Although every attempt has been made by the provider to proofread this document, occasional misspellings and typographical errors may still be present Due to the previous pandemic, and the use of personal protective equipment (PPE) This may decrease voice recognition accuracy Inadvertent equity structurer errors may occur0 07/23/2023 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 Acute Concerns/Problem List: 07/23/2023 Will rerefer to neurology per request Rerefer to [facility] Emgality samples provided encouraged to speak to insurance company and to neurologist regarding treatment options She seems to respond to CGRP's Cardiac stress testing Lets update labs and CPE in the upcoming months We discussed the role of cholesterol and atherosclerosis. Cholesterols broken down into some particles. Cholesterol very important for her body and has an important role in the synthesis of various hormones and neurotransmitters. However, today's cholesterol can have potential complications. Small density LDL particles that are oxidized or particularly dangerous. HDL cholesterol can have a protective effect. Elevated triglycerides levels are also dangerous. An elevated triglyceride and HDL ratio could be a sign of insulin resistance. Statins, fibrates, niacin, fish oil, DHEA, can be beneficial in treatment of dyslipidemia. Lifestyle modification with exercise and appropriate nutrition can decrease the risk of atherosclerosis due to dyslipidemia. Of note, some information is being carried forward from prior records for informational purposes only and is being cited so that efficiency, safety and quality of the patient's care is not compromised This note was prepared using voice recognition software and direct typing Please excuse inadvertent equity structurer or typing errors, or uncorrected word substitutions Although every attempt has been made by the provider to proofread this document, occasional misspellings and typographical errors may still be present Due to the previous pandemic, and the use of personal protective equipment (PPE) This may decrease voice recognition accuracy Inadvertent equity structurer errors may occur0 05/10/2024 Prediabetes (ICD-10 - R73.03) Acute Concerns/Problem List: 05/10/2024 Seeing neurology planning on getting LP done and a neuropsych evaluation Please update mammography please follow-up with [facility] in regards to stress testing Please [...] software and direct typing Please excuse inadvertent equity structurer or typing errors, or uncorrected word substitutions Although every attempt has been made by the provider to proofread this document, occasional misspellings and typographical errors may still be present Due to the previous pandemic, and the use of personal protective equipment (PPE) This may decrease voice recognition accuracy Inadvertent equity structurer errors may occur0 07/23/2023 Vitamin D deficiency, unspecified (ICD-10 - E55.9) Patient seen and examined for CCM. Acute Concerns/Problem List: 07/23/2023 Will rerefer to neurology per request Rerefer to [facility] Emgality samples provided encouraged to speak to insurance company and to neurologist regarding treatment options She seems to respond to CGRP's Cardiac stress testing Lets update labs and CPE in the upcoming months We discussed the role of cholesterol and atherosclerosis. Cholesterols broken down into some particles. Cholesterol very important for her body and has an important role in the synthesis of various hormones and neurotransmitters. However, today's cholesterol can have potential complications. Small density LDL particles that are oxidized or particularly dangerous. HDL cholesterol can have a protective effect. Elevated triglycerides levels are also dangerous. An elevated triglyceride and HDL ratio could be a sign of insulin resistance. Statins, fibrates, niacin, fish oil, DHEA, can be beneficial in treatment of dyslipidemia. Lifestyle modification with exercise and appropriate nutrition can decrease the risk of atherosclerosis due to dyslipidemia. Of note, some information is being carried forward from prior records for informational purposes only and is being cited so that efficiency, safety and quality of the patient's care is not compromised This note was prepared using voice recognition software and direct typing Please excuse inadvertent equity structurer or typing errors, or uncorrected word substitutions Although every attempt has been made by the provider to proofread this document, occasional misspellings and typographical errors may still be present Due to the previous pandemic, and the use of personal protective equipment (PPE) This may decrease voice recognition accuracy Inadvertent equity structurer errors may occur0 11/12/2023 Prediabetes (ICD-10 - R73.03) Acute Concerns/Problem List: 11/12/2023 _update labs please updated DXA send [facility] f/u with neurology Rerefer to [facility] Cardiac stress testing We discussed the role of cholesterol and atherosclerosis. Cholesterols broken down into some particles. Cholesterol very important for her body and has an important role in the synthesis of various hormones and neurotransmitters. However, today's cholesterol can have potential complications. Small density LDL particles that are oxidized or particularly dangerous. HDL cholesterol can have a protective effect. Elevated triglycerides levels are also dangerous. An elevated triglyceride and HDL ratio could be a sign of insulin resistance. Statins, fibrates, niacin, fish oil, DHEA, can be beneficial in treatment of dyslipidemia. Lifestyle modification with exercise and appropriate nutrition can decrease the risk of atherosclerosis due to dyslipidemia. Of note, some information is being carried forward from prior records for informational purposes only and is being cited so that efficiency, safety and quality of the patient's care is not compromised This note was prepared using voice recognition software and direct typing Please excuse inadvertent equity structurer or typing errors, or uncorrected word substitutions Although every attempt has been made by the provider to proofread this document, occasional misspellings and typographical errors may still be present Due to the previous pandemic, and the use of personal protective equipment (PPE) This may decrease voice recognition accuracy Inadvertent equity structurer errors may occur0 11/12/2023 Osteoporosis without current pathological fracture, unspecified osteoporosis type (ICD-10 - M81.0) Acute Concerns/Problem List: 11/12/2023 _update labs please updated DXA send prolia to [facility] f/u with neurology Rerefer to [facility] Cardiac stress testing We discussed the role of cholesterol and atherosclerosis. Cholesterols broken down into some particles. Cholesterol very important for her body and has an important role in the synthesis of various hormones and neurotransmitters. However, today's cholesterol can have potential complications. Small density LDL particles that are oxidized or particularly dangerous. HDL cholesterol can have a protective effect. Elevated triglycerides levels are also dangerous. An elevated triglyceride and HDL ratio could be a sign of insulin resistance. Statins, fibrates, niacin, fish oil, DHEA, can be beneficial in treatment of dyslipidemia. Lifestyle modification with exercise and appropriate nutrition can decrease the risk of atherosclerosis due to dyslipidemia. Of note, some information is being carried forward from prior records for informational purposes only and is being cited so that efficiency, safety and quality of the patient's care is not compromised This note was prepared using voice recognition software and direct typing Please excuse inadvertent equity structurer or typing errors, or uncorrected word substitutions Although every attempt has been made by the provider to proofread this document, occasional misspellings and typographical errors may still be present Due to the previous pandemic, and the use of personal protective equipment (PPE) This may decrease voice recognition accuracy Inadvertent equity structurer errors may occur0 05/10/2024 Osteoporosis without current pathological fracture, unspecified osteoporosis type (ICD-10 - M81.0) Acute Concerns/Problem List: 05/10/2024 Seeing neurology planning on getting LP done and a neuropsych evaluation Please update mammography please follow-up with [facility] in regards to stress testing Please [...] software and direct typing Please excuse inadvertent equity structurer or typing errors, or uncorrected word substitutions Although every attempt has been made by the provider to proofread this document, occasional misspellings and typographical errors may still be present Due to the previous pandemic, and the use of personal protective equipment (PPE) This may decrease voice recognition accuracy Inadvertent equity structurer errors may occur0 07/23/2023 Prediabetes (ICD-10 - R73.03) Patient seen and examined for CCM. Acute Concerns/Problem List: 07/23/2023 Will rerefer to neurology per request Rerefer to [facility] samples provided encouraged to speak to insurance company and to neurologist regarding treatment options She seems to respond to CGRP's Cardiac stress testing Lets update labs and CPE in the upcoming months We discussed the role of cholesterol and atherosclerosis. Cholesterols broken down into some particles. Cholesterol very important for her body and has an important role in the synthesis of various hormones and neurotransmitters. However, today's cholesterol can have potential complications. Small density LDL particles that are oxidized or particularly dangerous. HDL cholesterol can have a protective effect. Elevated triglycerides levels are also dangerous. An elevated triglyceride and HDL ratio could be a sign of insulin resistance. Statins, fibrates, niacin, fish oil, DHEA, can be beneficial in treatment of dyslipidemia. Lifestyle modification with exercise and appropriate nutrition can decrease the risk of atherosclerosis due to dyslipidemia. Of note, some information is being carried forward from prior records for informational purposes only and is being cited so that efficiency, safety and quality of the patient's care is not compromised This note was prepared using voice recognition software and direct typing Please excuse inadvertent equity structurer or typing errors, or uncorrected word substitutions Although every attempt has been made by the provider to proofread this document, occasional misspellings and typographical errors may still be present Due to the previous pandemic, and the use of personal protective equipment (PPE) This may decrease voice recognition accuracy Inadvertent equity structurer errors may occur0 07/23/2023 Osteoporosis without current pathological fracture, unspecified osteoporosis type (ICD-10 - M81.0) Patient seen and examined for CCM. Acute Concerns/Problem List: 07/23/2023 Will rerefer to neurology per request [facility]er to [facility] provided encouraged to speak to insurance company and to neurologist regarding treatment options She seems to respond to CGRP's Cardiac stress testing Lets update labs and CPE in the upcoming months We discussed the role of cholesterol and atherosclerosis. Cholesterols broken down into some particles. Cholesterol very important for her body and has an important role in the synthesis of various hormones and neurotransmitters. However, today's cholesterol can have potential complications. Small density LDL particles that are oxidized or particularly dangerous. HDL cholesterol can have a protective effect. Elevated triglycerides levels are also dangerous. An elevated triglyceride and HDL ratio could be a sign of insulin resistance. Statins, fibrates, niacin, fish oil, DHEA, can be beneficial in treatment of dyslipidemia. Lifestyle modification with exercise and appropriate nutrition can decrease the risk of atherosclerosis due to dyslipidemia. Of note, some information is being carried forward from prior records for informational purposes only and is being cited so that efficiency, safety and quality of the patient's care is not compromised This note was prepared using voice recognition software and direct typing Please excuse inadvertent equity structurer or typing errors, or uncorrected word substitutions Although every attempt has been made by the provider to proofread this document, occasional misspellings and typographical errors may still be present Due to the previous pandemic, and the use of personal protective equipment (PPE) This may decrease voice recognition accuracy Inadvertent equity structurer errors may occur0 05/10/2024 Pain in left shoulder (ICD-10 - M25.512) Acute Concerns/Problem List: 05/10/2024 Seeing neurology planning on getting LP done and a neuropsych evaluation Please update mammography please follow-up with [facility] in regards to stress testing Please [...] software and direct typing Please excuse inadvertent equity structurer or typing errors, or uncorrected word substitutions Although every attempt has been made by the provider to proofread this document, occasional misspellings and typographical errors may still be present Due to the previous pandemic, and the use of personal protective equipment (PPE) This may decrease voice recognition accuracy Inadvertent equity structurer errors may occur0 11/12/2023 Pain in left shoulder (ICD-10 - M25.512) Acute Concerns/Problem List: 11/12/2023 _update labs please updated DXA send [facility] to [facility] f/u with neurology Rerefer to [facility] Cardiac stress testing We discussed the role of cholesterol and atherosclerosis. Cholesterols broken down into some particles. Cholesterol very important for her body and has an important role in the synthesis of various hormones and neurotransmitters. However, today's cholesterol can have potential complications. Small density LDL particles that are oxidized or particularly dangerous. HDL cholesterol can have a protective effect. Elevated triglycerides levels are also dangerous. An elevated triglyceride and HDL ratio could be a sign of insulin resistance. Statins, fibrates, niacin, fish oil, DHEA, can be beneficial in treatment of dyslipidemia. Lifestyle modification with exercise and appropriate nutrition can decrease the risk of atherosclerosis due to dyslipidemia. Of note, some information is being carried forward from prior records for informational purposes only and is being cited so that efficiency, safety and quality of the patient's care is not compromised This note was prepared using voice recognition software and direct typing Please excuse inadvertent equity structurer or typing errors, or uncorrected word substitutions Although every attempt has been made by the provider to proofread this document, occasional misspellings and typographical errors may still be present Due to the previous pandemic, and the use of personal protective equipment (PPE) This may decrease voice recognition accuracy Inadvertent equity structurer errors may occur0 05/10/2024 Esophageal stricture (ICD-10 - K22.2) Acute Concerns/Problem List: 05/10/2024 Seeing neurology planning on getting LP done and a neuropsych evaluation Please update mammography please follow-up with [facility] in regards to stress testing Please [...] software and direct typing Please excuse inadvertent equity structurer or typing errors, or uncorrected word substitutions Although every attempt has been made by the provider to proofread this document, occasional misspellings and typographical errors may still be present Due to the previous pandemic, and the use of personal protective equipment (PPE) This may decrease voice recognition accuracy Inadvertent equity structurer errors may occur0 11/12/2023 Nonspecific chest pain (ICD-10 - R07.9) Acute Concerns/Problem List: 11/12/2023 _update labs please updated DXA send [facility] to [facility] f/u with neurology Rerefer to [facility] Cardiac stress testing We discussed the role of cholesterol and atherosclerosis. Cholesterols broken down into some particles. Cholesterol very important for her body and has an important role in the synthesis of various hormones and neurotransmitters. However, today's cholesterol can have potential complications. Small density LDL particles that are oxidized or particularly dangerous. HDL cholesterol can have a protective effect. Elevated triglycerides levels are also dangerous. An elevated triglyceride and HDL ratio could be a sign of insulin resistance. Statins, fibrates, niacin, fish oil, DHEA, can be beneficial in treatment of dyslipidemia. Lifestyle modification with exercise and appropriate nutrition can decrease the risk of atherosclerosis due to dyslipidemia. Of note, some information is being carried forward from prior records for informational purposes only and is being cited so that efficiency, safety and quality of the patient's care is not compromised This note was prepared using voice recognition software and direct typing Please excuse inadvertent equity structurer or typing errors, or uncorrected word substitutions Although every attempt has been made by the provider to proofread this document, occasional misspellings and typographical errors may still be present Due to the previous pandemic, and the use of personal protective equipment (PPE) This may decrease voice recognition accuracy Inadvertent equity structurer errors may occur0 07/23/2023 Pain in left shoulder (ICD-10 - M25.512) Patient seen and examined for CCM. Acute Concerns/Problem List: 07/23/2023 Will rerefer to neurology per request Rerefer to [facility] Emgality samples provided encouraged to speak to insurance company and to neurologist regarding treatment options She seems to respond to CGRP's Cardiac stress testing Lets update labs and CPE in the upcoming months We discussed the role of cholesterol and atherosclerosis. Cholesterols broken down into some particles. Cholesterol very important for her body and has an important role in the synthesis of various hormones and neurotransmitters. However, today's cholesterol can have potential complications. Small density LDL particles that are oxidized or particularly dangerous. HDL cholesterol can have a protective effect. Elevated triglycerides levels are also dangerous. An elevated triglyceride and HDL ratio could be a sign of insulin resistance. Statins, fibrates, niacin, fish oil, DHEA, can be beneficial in treatment of dyslipidemia. Lifestyle modification with exercise and appropriate nutrition can decrease the risk of atherosclerosis due to dyslipidemia. Of note, some information is being carried forward from prior records for informational purposes only and is being cited so that efficiency, safety and quality of the patient's care is not compromised This note was prepared using voice recognition software and direct typing Please excuse inadvertent equity structurer or typing errors, or uncorrected word substitutions Although every attempt has been made by the provider to proofread this document, occasional misspellings and typographical errors may still be present Due to the previous pandemic, and the use of personal protective equipment (PPE) This may decrease voice recognition accuracy Inadvertent equity structurer errors may occur0 07/23/2023 Other chronic pain (ICD-10 - G89.29) Patient seen and examined for CCM. Acute Concerns/Problem List: 07/23/2023 Will rerefer to neurology per request Rerefer to [facility] Emgality samples provided encouraged to speak to insurance company and to neurologist regarding treatment options She seems to respond to CGRP's Cardiac stress testing Lets update labs and CPE in the upcoming months We discussed the role of cholesterol and atherosclerosis. Cholesterols broken down into some particles. Cholesterol very important for her body and has an important role in the synthesis of various hormones and neurotransmitters. However, today's cholesterol can have potential complications. Small density LDL particles that are oxidized or particularly dangerous. HDL cholesterol can have a protective effect. Elevated triglycerides levels are also dangerous. An elevated triglyceride and HDL ratio could be a sign of insulin resistance. Statins, fibrates, niacin, fish oil, DHEA, can be beneficial in treatment of dyslipidemia. Lifestyle modification with exercise and appropriate nutrition can decrease the risk of atherosclerosis due to dyslipidemia. Of note, some information is being carried forward from prior records for informational purposes only and is being cited so that efficiency, safety and quality of the patient's care is not compromised This note was prepared using voice recognition software and direct typing Please excuse inadvertent equity structurer or typing errors, or uncorrected word substitutions Although every attempt has been made by the provider to proofread this document, occasional misspellings and typographical errors may still be present Due to the previous pandemic, and the use of personal protective equipment (PPE) This may decrease voice recognition accuracy Inadvertent equity structurer errors may occur0 11/12/2023 Esophageal stricture (ICD-10 - K22.2) Acute Concerns/Problem List: 11/12/2023 _update labs please updated DXA send prolia to [facility] f/u with neurology Rerefer to [facility] Cardiac stress testing We discussed the role of cholesterol and atherosclerosis. Cholesterols broken down into some particles. Cholesterol very important for her body and has an important role in the synthesis of various hormones and neurotransmitters. However, today's cholesterol can have potential complications. Small density LDL particles that are oxidized or particularly dangerous. HDL cholesterol can have a protective effect. Elevated triglycerides levels are also dangerous. An elevated triglyceride and HDL ratio could be a sign of insulin resistance. Statins, fibrates, niacin, fish oil, DHEA, can be beneficial in treatment of dyslipidemia. Lifestyle modification with exercise and appropriate nutrition can decrease the risk of atherosclerosis due to dyslipidemia. Of note, some information is being carried forward from prior records for informational purposes only and is being cited so that efficiency, safety and quality of the patient's care is not compromised This note was prepared using voice recognition software and direct typing Please excuse inadvertent equity structurer or typing errors, or uncorrected word substitutions Although every attempt has been made by the provider to proofread this document, occasional misspellings and typographical errors may still be present Due to the previous pandemic, and the use of personal protective equipment (PPE) This may decrease voice recognition accuracy Inadvertent equity structurer errors may occur0 PLAN OF TREATMENT Pending Test Test Name Order Date MRI : Brain 09/29/2017 Vitamin D, 1,25 Dihydroxy 06/03/2018 Lipid Panel 01/03/2020 Comp. Metabolic Panel (14) 01/03/2020 CBC 06/29/2017 Chem-Comprehensive 06/29/2017 Bone Density 01/07/2018 Bone Density 11/12/2023 Urinalysis 06/29/2017 EKG 09/25/2017 1,25OH VITAMIN D 07/30/2017 CARBOXYHEMOGLOBIN 06/01/2020 CBC (COMPLETE BLOOD COUNT) 06/01/2020 CBC (COMPLETE BLOOD COUNT) 06/03/2018 CBC (COMPLETE BLOOD COUNT) WITH DIFF CBC (COMPLETE BLOOD COUNT) WITH DIFF COMPREHENSIVE METABOLIC PANEL 07/30/2017 COMPREHENSIVE METABOLIC PANEL 06/03/2018 COMPREHENSIVE METABOLIC PANEL 06/21/2019 COMPREHENSIVE METABOLIC PANEL 06/01/2020 HEMOGLOBIN A1C 10/10/2021 HEMOGLOBIN A1C 07/30/2017 LIPID PANEL 07/30/2017 LIPID PANEL 11/30/2017 LIPID PANEL 06/03/2018 LIPID PANEL 06/21/2019 LIPID PANEL 09/16/2018 LIPID PANEL 10/10/2021 LIPID PANEL 01/09/2021 XR Foot 3+ Views RT 07/03/2020 XR Knee 3 Views RT 06/17/2022 LIPID PANEL, STANDARD 07/23/2023 COMPREHENSIVE METABOLIC PANEL 07/23/2023 CBC (INCLUDES DIFF/PLT) 07/23/2023 URINALYSIS, COMPLETE 07/23/2023 HEMOGLOBIN A1c 07/23/2023 TSH 07/23/2023 VITAMIN D,25-OH,TOTAL,IA 07/23/2023 Dexa Bone Density (Axial) 04/10/2022 Lumbar Spine Min 4 Views 03/15/2018 Shoulder Min 2 Views Left 08/07/2022 Future Test Test Name Order Date CBC (COMPLETE BLOOD COUNT) 01/03/2021 COMPREHENSIVE METABOLIC PANEL 01/03/2021 LIPID PANEL 01/03/2021 COMPLETE URINALYSIS 01/03/2021 25OH VITAMIN D 10/10/2021 CBC (COMPLETE BLOOD COUNT) 10/10/2021 COMPREHENSIVE METABOLIC PANEL 10/10/2021 HEMOGLOBIN A1C 10/10/2021 LIPID PANEL 10/10/2021 TSH 10/10/2021 COMPLETE URINALYSIS 10/10/2021 25OH VITAMIN D 11/06/2022 CBC (COMPLETE BLOOD COUNT) WITH DIFF 10/2022 COMPREHENSIVE METABOLIC PANEL 11/06/2022 HEMOGLOBIN A1C 11/06/2022 LIPID PANEL 11/06/2022 TSH WITH REFLEX TO FT4 11/06/2022 URINALYSIS W/REFLEX CULTURE 11/06/2022 Next Appt Details Provider Name:MARIETTA BALLARD, 11/08/2024 10:00:00 AM, [address] [place] [address] [address], [place], [address], Insurance Providers Payer Name Payer Address Payer Phone Subscriber Number Group Number Insured Name Patient Relationship to Insured Coverage Start Date Coverage End Date [employer] [place] [facility] [address] [place] [address] [phone] [id number] GRACE CARROLL Self - patient is the insured MEDICAL (GENERAL) HISTORY Medical History History ICD Code asthma allergic rhinitis hypercholesterolemia hyperlipidemia Surgical History Surgery Date(Month/Year) cholecystectomy ovarian cyst resection polypectomy colonoscopy 2019
--- NOTE | ~2024-05-27 | FL_ITS ---
FLUOROSCOPIC GUIDED LUMBAR PUNCTURE INDICATION: Cognitive impairment TECHNIQUE: Risks and benefits and possible complications were discussed with the patient and the consent form was signed. Patient was placed prone on the fluoroscopy table. The back was prepped and draped in routine sterile fashion. Betadine was used as a skin antiseptic. Utilizing fluoroscopic guidance, the L4-5 interlaminar space was accessed with a 22 gague Joe spinal needle and clear CSF fluid obtained. Opening pressure was 10 cm H2O. 2 cc of fluid was sent for analysis. The needle was removed without immediate complications. Total fluoroscopy time: 0.4 min FL/FL guided lumbar puncture LP IMPRESSION: Successful fluoroscopic guided lumbar puncture at L4-L5. This procedure was performed by Ross Terry PA-C and supervised by Dr. Rubio. Electronically signed by: Onofre Rubio MD 05/27/2024 05:02 PM [facility] [place]
[2024-05-27 10:07] VITALS: BMI 31.8
[2024-05-27 10:08] VITALS: BP 135/71; PULSE 81; RESP 16; TEMP 36.7; O2SAT 95
[2024-05-27 11:15] VITALS: BP 133/73; PULSE 72; RESP 18; TEMP 36.2; O2SAT 99
[2024-05-27 11:30] VITALS: BP 124/69; PULSE 72; RESP 16; O2SAT 98
[2024-05-27 11:45] VITALS: BP 115/69; PULSE 80; RESP 16; TEMP 36.1; O2SAT 96
== END 2024-05-27 11:57 | disposition home or self-care (01) ==
PROVIDERS: Physician Assistant Surgical; PCP Internal Medicine; Visit Provider Psychiatry & Neurology Neurology
PROC: 009U3ZZ Drainage of Spinal Canal, Percutaneous Approach (ICD-10-PCS; CPT 62270; principal; 2024-05-27 11:00)
DX: G31.84 Mild cognitive impairment of uncertain or unknown etiology (principal); G43.909 Migraine, unspecified, not intractable, without status migrainosus; F41.9 Anxiety disorder, unspecified; D89.40 Mast cell activation, unspecified; J45.909 Unspecified asthma, uncomplicated; L30.9 Dermatitis, unspecified; Z88.5 Allergy status to narcotic agent
CPT/HCPCS: 62328; J2003